=== PATIENT | female | born 1950 | race Caucasian/White ===

== ENCOUNTER 2023-11-01 10:43 | Day surgery (SDC) | payer MEDICARE ==
[~2023-11-01] VITALS: Ht 162.6 cm; Wt 102.5 kg
[~2023-11-01 10:43] MED LIST: ALLO300T2 PO; ASPI-163 PO; BASA100I SC; DULA3PEN SC; FAMO40TA3 PO; LEVO75TA4 PO; LORA-1041 PO; LOSA25TA13 PO; LR 1,000 ML IV SCH; METO1TAB32 PO; NOVOINJ3 PO; ROSU40TA63 PO; ZOLO100T PO
[2023-11-01] MEDS: TETRACAINE 0.5% OPHTH SOLN 4ML OD SCH (12:56)
[2023-11-01] MEDS: ATROPINE SULFATE 1% OPHTH SOLN 2ML BTL OD SCH (12:56)
[2023-11-01] MEDS: PHENYLEPHRINE 2.5% OPHTH SOL 2ML OD SCH (12:56)
[2023-11-01] MEDS: FLURBIPROFEN 0.03% OPHTH SOLN 2.5 ML OD SCH (12:56)
[2023-11-01] MEDS: MOXIFLOXACIN 0.6MG/0.4ML INTRAOCULAR SYRINGE As Ordered ONE (14:10)
[2023-11-01] MEDS: LIDOCAINE 1% SDV 5ML VIAL As Ordered ONE (14:10)
[2023-11-01] MEDS ORDERED: fentaNYL 100 MCG/2 ML INJECTION As Ordered ONE (14:18)
[2023-11-01] MEDS ORDERED: MIDAZOLAM INJ 2MG/2ML VIAL As Ordered ONE (14:18)
[2023-11-01 14:43] VITALS: BP 101/50; TEMP 97.5; O2SAT 97
== END 2023-11-01 14:46 | disposition home or self-care (01) ==
LOC: M SDC 10:43
PROVIDERS: ATTEND Ophthalmology
DX: E11.36 Type 2 diabetes mellitus with diabetic cataract (principal); H25.11 Age-related nuclear cataract, right eye; I12.9 Hypertensive chronic kidney disease with stage 1 through stage 4 chronic kidney disease, or unspecified chronic kidney disease; E03.9 Hypothyroidism, unspecified; E78.00 Pure hypercholesterolemia, unspecified; E11.22 Type 2 diabetes mellitus with diabetic chronic kidney disease; N18.30 Chronic kidney disease, stage 3 unspecified; I25.10 Atherosclerotic heart disease of native coronary artery without angina pectoris; Z79.899 Other long term (current) drug therapy; Z79.82 Long term (current) use of aspirin; Z79.4 Long term (current) use of insulin; Z79.85 Long-term (current) use of injectable non-insulin antidiabetic drugs; Z87.891 Personal history of nicotine dependence; Z90.710 Acquired absence of both cervix and uterus; Z90.49 Acquired absence of other specified parts of digestive tract; Z88.0 Allergy status to penicillin
CPT/HCPCS: 66984; J2250; J3010; V2632

== ENCOUNTER 2023-11-08 12:15 | Day surgery (SDC) | payer MEDICARE ==
[~2023-11-08] VITALS: Ht 162.6 cm; Wt 101.2 kg
[2023-11-08] MEDS: ATROPINE SULFATE 1% OPHTH SOLN 2ML BTL OS SCH (13:03)
[2023-11-08] MEDS: PHENYLEPHRINE 2.5% OPHTH SOL 2ML OS SCH (13:03)
[2023-11-08] MEDS: TETRACAINE 0.5% OPHTH SOLN 4ML OS SCH (13:03)
[2023-11-08] MEDS: FLURBIPROFEN 0.03% OPHTH SOLN 2.5 ML OS SCH (13:03)
[2023-11-08] MEDS ORDERED: MIDAZOLAM INJ 2MG/2ML VIAL As Ordered ONE (14:13)
[2023-11-08] MEDS: LIDOCAINE 1% SDV 5ML VIAL As Ordered ONE (14:16)
[2023-11-08] MEDS: MOXIFLOXACIN 0.6MG/0.4ML INTRAOCULAR SYRINGE As Ordered ONE (14:17)
[2023-11-08] MEDS: DUOVISC (0.50ML VISCOAT/0.85ML PROVISC) OPHTH KIT As Ordered ONE (14:20)
[2023-11-08] MEDS: PROVISC 10 MG/ML 0.85ML SYRINGE As Ordered ONE (14:20)
[2023-11-08 14:39] VITALS: BP 112/57; TEMP 97.7; O2SAT 97
== END 2023-11-08 14:54 | disposition home or self-care (01) ==
LOC: M SDC 12:15
PROVIDERS: ATTEND Ophthalmology
DX: E11.36 Type 2 diabetes mellitus with diabetic cataract (principal); H25.12 Age-related nuclear cataract, left eye; I25.10 Atherosclerotic heart disease of native coronary artery without angina pectoris; I12.9 Hypertensive chronic kidney disease with stage 1 through stage 4 chronic kidney disease, or unspecified chronic kidney disease; N18.30 Chronic kidney disease, stage 3 unspecified; E78.00 Pure hypercholesterolemia, unspecified; E03.9 Hypothyroidism, unspecified; Z79.899 Other long term (current) drug therapy; Z79.84 Long term (current) use of oral hypoglycemic drugs; Z79.890 Hormone replacement therapy; Z79.4 Long term (current) use of insulin; M10.9 Gout, unspecified; K21.9 Gastro-esophageal reflux disease without esophagitis; Z95.1 Presence of aortocoronary bypass graft; Z87.891 Personal history of nicotine dependence; Z90.710 Acquired absence of both cervix and uterus; Z88.0 Allergy status to penicillin
CPT/HCPCS: 66984; J2250; V2632